=== PATIENT | male | born 1990 | race Caucasian/White ===

== ENCOUNTER 2019-03-11 19:51 | Emergency (ER) | payer MEDICAID, OTHER ==
[~2019-03-11] VITALS: Ht 167.6 cm; Wt 82.0 kg
[2019-03-11] MEDS ORDERED: SODIUM CHLORIDE 0.9% 1,000 ML IV ONE ×2 (20:18→21:30)
[2019-03-11] MEDS ORDERED: PEN G BENZ/PEN G PROCAINE CR 1.2 MMU/2 ML IM ONE (20:30)
[2019-03-11 21:04] LABS: BASOPHILS % 0.5 % (0.0-2.0); EOSINOPHILS % 0.4 % (0.0-5.0); HEMATOCRIT. 42.4 % (42.0-52.0); HEMOGLOBIN. 15.1 g/dL (14.0-18.0); LYMPHOCYTES % 12.6 % (20.0-50.0); MEAN CORPUSCULAR VOLUME 90.2 fL (80.0-94.0); MEAN PLATELET VOLUME 8.2 fl (7.4-10.4); MONOCYTES % 7.8 % (2.0-8.0); NEUTROPHILS % 78.7 % (40.0-76.0); PLATELET 252 x1000/uL (130-400)
[2019-03-11 21:06] LABS: CHLORIDE 103 mEq/L (98-107)
[2019-03-11 21:10] LABS: ETHANOL BLOOD < 10 mg/dL
[2019-03-11 21:19] LABS: *AMPHETAMINES SCREEN URINE NEGATIVE (NEGATIVE); *BARBITURATES SCREEN URINE NEGATIVE (NEGATIVE); *BENZODIAZEPINES SCREEN URINE NEGATIVE (NEGATIVE); *COCAINE SCREEN URINE NEGATIVE (NEGATIVE)
[2019-03-11 21:20] LABS: CANNABINOID URINE SCREEN NEGATIVE (NEGATIVE); METHADONE URINE SCREEN NEGATIVE (NEGATIVE); OPIATES URINE SCREEN PRESUMTIVE POSITIVE (NEGATIVE); PHENCYCLIDINE URINE SCREEN NEGATIVE (NEGATIVE)
[2019-03-11] MEDS ORDERED: LORAZEPAM 0.5MG TABLET PO ONE (21:30)
[2019-03-11 22:30] VITALS: BP 121/73
== END 2019-03-11 23:08 | disposition home or self-care (01) ==
LOC: ER 19:51
DX: R07.89 Other chest pain (principal); R03.0 Elevated blood-pressure reading, without diagnosis of hypertension
CPT/HCPCS: 36415; 71045; 80053; 80305; 80320; 84484; 85025; 93005; 96372; 99284; J0558; J7030; G0480